=== PATIENT | female | born 1995 | race African-American/Black ===

== ENCOUNTER → 2020-01-13 | Emergency (ER) | payer MEDICAID, OTHER ==
[~2020-01-13] VITALS: Ht 165.1 cm; Wt 64.9 kg
[~2020-01-13] MED LIST: LORazepam 2MG/ML-1ML VIAL IM ONE; LORazepam 2MG/ML-1ML VIAL ONE
[2020-01-13 11:32] VITALS: BP 128/80
[2020-01-13 11:37] LABS: Basophils # (auto) 0 10 ^3/uL (0-0.2); Basophils % (auto) 0.3 % (0.0-2.0); Eosinophils # (auto) 0 10 ^3/uL (0-0.8); Eosinophils % (auto) 0.1 % (0.0-7.0); Hematocrit 41.4 % (36.0-46.0); Hemoglobin 13.2 g/dL (12.2-16.2); Lymphocytes # (auto) 1.5 10 ^3/uL (0.4-5.4); Mean Corpuscular Hemoglobin 27.3 pg (28.0-32.0); Mean Corpuscular Volume 85.5 fL (80.0-100.0); Monocytes # (auto) 0.6 10 ^3/uL (0-1.3); Monocytes % (auto) 6.7 % (0.0-12.0); Neutrophils # (auto) 7.6 10 ^3/uL (1.6-8.6); Neutrophils % (auto) 77.9 % (37.0-80.0); Platelet Count (auto) 422 10^3/uL (140-450); Red Blood Cells 4.84 10^6/uL (4.0-5.20); Red Cell Distribution Width 13.7 % (11.8-14.3); White Blood Cell 9.7 10^3/uL (4.4-10.8)
[2020-01-13 12:02] LABS: BUN/Creatinine Ratio 8.3; Calcium 9.1 mg/dL (8.5-10.1); Potassium 3.4 mmol/L (3.5-5.1)
== END | disposition home or self-care (01) ==
LOC: ER 10:44
DX: F43.0 Acute stress reaction (principal); E87.6 Hypokalemia; F84.0 Autistic disorder
CPT/HCPCS: 36415; 80048; 85025; 96372; 99283; J2060

== ENCOUNTER 2020-02-07 10:07 | Emergency (ER) | payer MEDICAID ==
[~2020-02-07] VITALS: Ht 160 cm; Wt 0.5 kg
[2020-02-07] MEDS ORDERED: LORazepam 2MG/ML-1ML VIAL ONE (12:13)
[2020-02-07] MEDS ORDERED: HALOPERIDOL LACTATE 5 MG/ML INJ VIAL ONE (12:13)
[2020-02-07] MEDS ORDERED: diphenhdrAMINE HCL 50 MG/1 ML VL ONE (12:13)
[2020-02-07] MEDS ORDERED: diphenhdrAMINE HCL 50 MG/1 ML VL IM ONE (12:15)
[2020-02-07] MEDS ORDERED: HALOPERIDOL LACTATE 5 MG/ML INJ VIAL IM ONE (12:15)
[2020-02-07] MEDS ORDERED: LORazepam 2MG/ML-1ML VIAL IM ONE (12:15)
[2020-02-07 12:58] LABS: Basophils # (auto) 0 10 ^3/uL (0-0.2); Basophils % (auto) 0.3 % (0.0-2.0); Eosinophils # (auto) 0 10 ^3/uL (0-0.8); Eosinophils % (auto) 0.3 % (0.0-7.0); Hemoglobin 12.6 g/dL (12.2-16.2); Lymphocytes # (auto) 1.5 10 ^3/uL (0.4-5.4); Lymphocytes % (auto) 17.4 % (10.0-50.0); Mean Corpuscular Hemoglobin 27.4 pg (28.0-32.0); Mean Corpuscular Hgb Conc. 32.2 g/dL (32.0-36.0); Mean Corpuscular Volume 85.2 fL (80.0-100.0); Monocytes # (auto) 0.6 10 ^3/uL (0-1.3); Monocytes % (auto) 6.6 % (0.0-12.0); Neutrophils # (auto) 6.3 10 ^3/uL (1.6-8.6); Neutrophils % (auto) 75.4 % (37.0-80.0); Platelet Count (auto) 385 10^3/uL (140-450); Red Blood Cells 4.58 10^6/uL (4.0-5.20); Red Cell Distribution Width 13.4 % (11.8-14.3); White Blood Cell 8.4 10^3/uL (4.4-10.8)
[2020-02-07 13:13] LABS: Albumin 3.6 g/dL (3.4-5.0); Calcium 8.3 mg/dL (8.5-10.1); Magnesium 2.4 mg/dL (1.6-2.6); Potassium 3.1 mmol/L (3.5-5.1); Salicylate < 1.7 mg/dL (2.8-20.0)
[2020-02-07 13:14] LABS: Acetaminophen < 2.0 ug/mL (10-30)
[2020-02-07 13:16] LABS: BUN/Creatinine Ratio 3.1; Bilirubin, Total 0.3 mg/dL (0.2-1.0); Total Protein 7.9 g/dL (6.4-8.2)
[2020-02-07 13:27] LABS: Urine Bacteria FEW /hpf (None Seen); Urine Blood TRACE /uL (Negative); Urine Specific Gravity 1.015 (1.001-1.035); Urine WBC 3 /hpf (0 - 5)
[2020-02-07 13:41] LABS: Amphetamine Screen, Urine NEGATIVE (NEGATIVE); Barbiturate Scree,Urine NEGATIVE (NEGATIVE); Benzodiazephine Screen, Urine NEGATIVE (NEGATIVE); Cannabinoid Screen, Urine NEGATIVE (NEGATIVE); Cocaine Screen, Urine NEGATIVE (NEGATIVE); Opiate Scree,Urine NEGATIVE (NEGATIVE); Phencyclidine Screen, Urine NEGATIVE (NEGATIVE)
[2020-02-07 13:56] LABS: Alcohol, Urine < 3.0 mg/dL (0-10)
[2020-02-07] MEDS ORDERED: QUEtiapine FUMARATE 25 MG TAB PO PRN ×2 (19:00→19:15)
[2020-02-07] MEDS ORDERED: LORazepam 2MG/ML-1ML VIAL IM PRN (19:00)
[2020-02-07] MEDS ORDERED: POTASSIUM CHL 20 Meq TABLET PO ONE (21:45)
[2020-02-07] MEDS: OXcarbazepine 300 MG TAB PO SCH (22:00)
[2020-02-08] MEDS: OXcarbazepine 300 MG TAB PO SCH ×2 (11:29→22:15)
[2020-02-09] MEDS: OXcarbazepine 300 MG TAB PO SCH ×2 (13:44→23:02)
[2020-02-10] MEDS: OXcarbazepine 300 MG TAB PO SCH ×2 (14:27→22:35)
[2020-02-10] MEDS ORDERED: cefTRIAXone 1GM/50ML D5W 50 ML IV ONE ×2 (21:45→22:27)
[2020-02-10 22:11] LABS: Urine Bacteria MOD /hpf (None Seen); Urine Blood 1+ /uL (Negative); Urine Mucus FEW (None Seen); Urine Specific Gravity 1.016 (1.001-1.035); Urine WBC 303 /hpf (0 - 5); Urine WBC Clumps PRESENT /hpf (None Seen)
[2020-02-10] MEDS ORDERED: OXcarbazepine 300 MG TAB ONE (22:32)
[2020-02-11] MEDS: cefTRIAXone 1GM/50ML D5W 50 ML IV SCH (09:00)
[2020-02-11] MEDS: OXcarbazepine 300 MG TAB PO SCH ×2 (10:29→22:55)
[2020-02-12 06:01] VITALS: BP 108/69
[2020-02-12] MEDS ORDERED: NITROFURANTOIN 100 mg CAP PO ONE (10:30)
[2020-02-12] MEDS: cefTRIAXone 1GM/50ML D5W 50 ML IV SCH (10:44)
[2020-02-12] MEDS: OXcarbazepine 300 MG TAB PO SCH (10:52)
== END 2020-02-12 12:40 | disposition home or self-care (01) ==
LOC: ER 10:07 → EDBD 10:07 → ER 02-12 12:40
DX: F23 Brief psychotic disorder (principal); F32.9 Major depressive disorder, single episode, unspecified; F41.9 Anxiety disorder, unspecified; R56.9 Unspecified convulsions; E87.6 Hypokalemia; F84.0 Autistic disorder; Z20.828 Contact with and (suspected) exposure to other viral communicable diseases
CPT/HCPCS: 36415; 80053; 80307; 80329; 81001; 83735; 84702; 85025; 87086; 96372; 99285; J0696; J1200; J1630; J2060; U0003

== ENCOUNTER 2020-02-19 09:38 | Emergency (ER) | payer MEDICAID ==
[2020-02-19] MEDS ORDERED: LORazepam 0.5 MG TAB ONE (09:41)
[2020-02-19] MEDS ORDERED: LORazepam 0.5 MG TAB PO ONE (09:45)
[2020-02-19] MEDS ORDERED: HALOPERIDOL LACTATE 5 MG/ML INJ VIAL IM ONE (11:00)
[2020-02-20] MEDS ORDERED: HALOPERIDOL LACTATE 5 MG/ML INJ VIAL IM ONE (08:30)
[2020-02-20] MEDS ORDERED: LORazepam 2MG/ML-1ML VIAL IM ONE (08:30)
[2020-02-20] MEDS ORDERED: HALOPERIDOL LACTATE 5 MG/ML INJ VIAL ONE (08:33)
[2020-02-20] MEDS ORDERED: LORazepam 0.5 MG TAB PO ONE ×2 (09:15→18:15)
[2020-02-20 10:05] VITALS: BP 101/52
[2020-02-20] MEDS ORDERED: risperiDONE 1 MG TAB ONE (18:06)
[2020-02-20] MEDS ORDERED: LORazepam 0.5 MG TAB ONE (18:07)
[2020-02-20] MEDS ORDERED: risperiDONE 1 MG TAB PO ONE (18:15)
== END 2020-02-20 17:58 | disposition home or self-care (01) ==
LOC: EDBD 09:38 → ER 09:38
DX: R45.851 Suicidal ideations (principal); F41.1 Generalized anxiety disorder; F43.0 Acute stress reaction; F84.0 Autistic disorder
CPT/HCPCS: 96372; 99284; J1630